=== PATIENT | female | born 2000 | race Two or more races ===

== ENCOUNTER 2021-09-10 00:08 | Emergency (ER) | payer MEDICAID ==
[~2021-09-10] VITALS: Ht 165.1 cm; Wt 85.0 kg
[2021-09-10 00:12] VITALS: BP 101/67
[2021-09-10] MEDS ORDERED: TETANUS, DIPHTHERIA, PERTUSSIS VAC/PF 0.5ML (>10YR OLD) IM ONE (00:45)
== END 2021-09-10 00:53 | disposition left against medical advice (07) ==
LOC: ER 00:08
DX: F41.0 Panic disorder [episodic paroxysmal anxiety] (principal); Z13.9 Encounter for screening, unspecified
CPT/HCPCS: 99283